=== PATIENT | male | born 1995 | race Hispanic/Latino ===

== ENCOUNTER 2023-08-06 21:09 | Emergency (ER) | payer SELFPAY ==
[2023-08-06 22:03] LABS: Absolute Lymphocytes (CBC) 2.6 K/uL (0.7-4.9); Hematocrit 40.9 % (39.6-49.0); Lymphocytes % 16.3 % (15.3-44.8); MCV 91.3 fL (80-100); Platelets 286 thou/uL (152-406); RBC Red Blood Cell Count 4.48 M/uL (4.33-5.43)
[2023-08-06] MEDS ORDERED: NA CHLORIDE 0.9% 1,000 ML ONE (22:03)
[2023-08-06] MEDS ORDERED: dexAMETHasone 10 MG/ML VIAL ONE (22:03)
[2023-08-06 22:07] LABS: Potassium 3.4 mEq/L (3.5-5.1)
--- NOTE | 2023-08-07 00:09 | ER ---
Nurse's Notes [facility] Name: Eduardo Allen Age: 28 yrs Sex: Male : 1995 Arrival Date: 08/06/2023 Time: 21:09 Bed 13 Private MD: Diagnosis: Acute tonsillitis, unspecified Presentation: 08/06 21:17 Chief complaint: Patient states: sore throat onset Saturday. Pt states that the left side cm10 of his throat hurts and not the right side. Coronavirus screen: Vaccine status: Patient reports being unvaccinated. Client denies travel out of the [place] in the last 14 days. Ebola Screen: Patient denies travel to an Ebola-affected area in the 21 days before illness onset. No symptoms or risks identified at this time. Initial Sepsis Screen: Does the patient meet any 2 criteria? No. Patient's initial sepsis screen is negative. Does the patient have a suspected source of infection? No. Patient's initial sepsis screen is negative. Risk Assessment: Do you want to hurt yourself or someone else? Patient reports no desire to harm self or others. Onset of symptoms was August 06, 2023. 21:17 Method Of Arrival: Ambulatory cm10 21:17 Acuity: LAURA 3 cm10 Historical: - Allergies: 21:18 No Known Allergies; cm10 - Home Meds: 21:18 None [Active]; cm10 - PMHx: 21:18 None; cm10 - PSHx: 21:18 None; cm10 - Immunization history:: Adult Immunizations unknown. - Social history:: Smoking status: Patient reports the use of cigarette tobacco products, denies chronic smoking, but will smoke occasionally. Screenin:56 [facility] ED Fall Risk Assessment (Adult) History of falling in the last 3 months, kl including since admission No falls in past 3 months (0 pts) Confusion or Disorientation No (0 pts) Intoxicated or Sedated No (0 pts) Impaired Gait No (0 pts) Mobility Assist Device Used No (0 pt) Altered Elimination No (0 pt) Score/Fall Risk Level 0 - 2 = Low Risk. Abuse screen: Denies threats or abuse. Nutritional screening: No deficits noted. Tuberculosis screening: No symptoms or risk factors identified. Assessment: 21:45 General: Appears in no apparent distress. uncomfortable, Behavior is calm, cooperative. kl Pain:. 21:55 Neuro: No deficits noted. Cardiovascular: No deficits noted. Respiratory: No deficits kl noted. Airway is patent Respiratory effort is even, unlabored, Respiratory pattern is regular, symmetrical, Breath sounds are clear bilaterally. EENT: Throat is reddened with gag reflex present, Reports difficulty swallowing. 23:01 Reassessment: Patient appears in no apparent distress at this time. Patient and/or [facility] family updated on plan of care and expected duration. Pain level reassessed. Patient is alert, oriented x 3, equal unlabored respirations, skin warm/dry/pink. c/o pain to throat 04/22, provider notified. 08/07 00:08 Reassessment: Patient appears in no apparent distress at this time. No changes from [facility] previously documented assessment. Patient and/or family updated on plan of care and expected duration. Pain level reassessed. Patient is alert, oriented x 3, equal unlabored respirations, skin warm/dry/pink. 00:10 General: Discharge pending completion of antibiotic therapy. [facility] 00:30 Reassessment: Patient appears in no apparent distress at this time. Patient and/or [facility] family updated on plan of care and expected duration. Pain level reassessed. Patient is alert, oriented x 3, equal unlabored respirations, skin warm/dry/pink. Patient states feeling better. Vital Signs: 08/06 21:17 BP 132 / 94; Pulse 92; Resp 16; Temp 98.6(TE); Pulse Ox 97% ; Weight 101.6 kg (R); cm10 Height 5 ft. 2 in. ; 23:07 BP 129 / 88; Pulse 73; Resp 18 S; Pulse Ox 99% on R/A; jw7 08/07 00:09 BP 130 / 85; Pulse 71; Resp 17 S; Pulse Ox 98% on R/A; jw7 08/06 21:17 Body Mass Index 39.69 (101.60 kg, 160 cm) cm10 ED Course: 08/06 21:13 Patient arrived in ED. gm2 21:14 Cherry Gomez FNP-C [facility] kb 21:14 Prasad Price MD is Attending Physician. kb 21:18 Triage completed. cm10 21:19 Arm band placed on Patient placed in waiting room. cm10 21:30 Mariposa Go, RN is Primary Nurse. jw7 21:43 Basic Metabolic Panel Sent. kl 21:43 CBC with Diff Sent. kl 21:43 Strep Sent. kl 21:44 No provider procedures requiring assistance completed. Inserted saline lock: 22 gauge kl in right ,using aseptic technique. lower forearm Blood collected. 21:57 Patient has correct armband on for positive identification. Bed in low position. Call kl light in reach. Side rails up X2. Door closed. Noise minimized. Warm blanket given. 22:45 CT Soft Tissue Neck W/contr In Process Unspecified. EDMS 08/07 00:31 Provided Education on: discharge instructions . jw7 00:31 IV discontinued, intact, bleeding controlled, No redness/swelling at site. Pressure jw7 dressing applied. Administered Medications: 08/06 21:55 Drug: NS 0.9% IV 1000 ml IV at 1000 ml once Route: IV; Rate: 1000 ml; Site: right kl forearm; 08/07 00:10 Follow up: Response: No adverse reaction; IV Status: Completed infusion; IV Intake: jw7 1000ml 08/06 21:55 Drug: Decadron - Dexamethasone IVP 10 mg IVP once Route: IVP; Site: right forearm; 08/07 00:10 Follow up: Response: No adverse reaction jw7 00:18 Drug: Rocephin - Rocephin (cefTRIAXone) IVPB 1 grams IVPB once over 30 mins; (mix in 50 jw7 mL NS) Route: IVPB; Infused Over: 30 mins; Site: right hand; 00:31 Follow up: Response: No adverse reaction; IV Status: Completed infusion; IV Intake: [id number] Medication: 00:31 VIS not applicable for this client. jw7 Intake: 00:10 IV: 1000ml; Total: 1000ml. jw7 00:31 IV: 50ml; Total: 1050ml. jw7 Outcome: 00:09 Discharge ordered by MD. lepe 00:31 Discharged to home ambulatory, with family, jw7 00:31 Condition: stable 00:31 Discharge instructions given to patient, Instructed on discharge instructions, follow up and referral plans. medication usage, Demonstrated understanding of instructions, follow-up care, medications, Prescriptions given X 1, 00:32 Patient left the ED. jw7 Signatures: Dispatcher [employer] EDTX Cherry Gomez, AIR TRAFFIC CONTROLLER-C AIR TRAFFIC CONTROLLER-Ckb Lurdes Serrano, RN RN Mariposa Hammond RN RN jw7 Elisabet Childress RN RN cm10 Gudelia Crum 2 Corrections: (The following items were deleted from the chart) 08/06 23:07 23:01 Reassessment: Patient appears in no apparent distress at this time. No changes jw7 from previously documented assessment. Patient and/or family updated on plan of care and expected duration. Pain level reassessed. Patient is alert, oriented x 3, equal unlabored respirations, skin warm/dry/pink. jw7
--- NOTE | 2023-08-07 00:09 | EDPHYS ---
Physician Documentation [facility] Name: Eduardo Allen Age: 28 yrs Sex: Male : 1995 Arrival Date: 08/06/2023 Time: 21:09 Bed 13 Private MD: ED Physician Prasad Price HPI: 08/07 00:54 This 28 yrs old Male presents to ER via Ambulatory with complaints of Sore kb Throat, Fever. 00:54 Patient is a 28-year-old male who presents for fever and sore throat that started 5 kb days ago. Denies any other symptoms.. Historical: - Allergies: 08/06 21:18 No Known Allergies; cm10 - Home Meds: 21:18 None [Active]; cm10 - PMHx: 21:18 None; cm10 - PSHx: 21:18 None; cm10 - Immunization history:: Adult Immunizations unknown. - Social history:: Smoking status: Patient reports the use of cigarette tobacco products, denies chronic smoking, but will smoke occasionally. ROS: 08/07 00:51 Abdomen/GI: Negative for abdominal pain, nausea, vomiting, diarrhea, and constipation, kb Constitutional: Positive for fever, ENT: Positive for sore throat, All other systems are negative, Exam: 00:51 Constitutional: This is a well developed, well nourished patient who is awake, alert, kb and in no acute distress. Head/Face: Normocephalic, atraumatic. Cardiovascular: Regular rate Respiratory: Respirations even and unlabored. No increased work of breathing. Talking in full sentences Skin: Warm, dry with normal turgor. Normal color. MS/ Extremity: Pulses equal, no cyanosis. Neurovascular intact. Full, normal range of motion. Neuro: Awake and alert, GCS 15, oriented to person, place, time, and situation. Moves all extremities. Normal gait. 00:51 ENT: Posterior pharynx: Tonsils: bilaterally enlarged, left more than right, swelling, that is moderate, erythema, that is moderate, Vital Signs: 08/06 21:17 BP 132 / 94; Pulse 92; Resp 16; Temp 98.6(TE); Pulse Ox 97% ; Weight 101.6 kg (R); cm10 Height 5 ft. 2 in. ; 23:07 BP 129 / 88; Pulse 73; Resp 18 S; Pulse Ox 99% on R/A; jw7 08/07 00:09 BP 130 / 85; Pulse 71; Resp 17 S; Pulse Ox 98% on R/A; jw7 08/06 21:17 Body Mass Index 39.69 (101.60 kg, 160 cm) cm10 MDM: 08/06 21:14 Patient medically screened. kb 08/07 00:09 Data reviewed: vital signs, nurses notes. kb 00:54 Differential diagnosis: peritonsillar abscess tonsillitis, strep. Counseling: I had a kb detailed discussion with the patient and/or guardian regarding the historical points, exam findings, and any diagnostic results supporting the discharge/admit diagnosis, lab results, radiology results, the need for outpatient follow up, a family practitioner, to return to the emergency department if symptoms worsen or persist or if there are any questions or concerns that arise at home. 08/06 21:18 Order name: Strep kb 08/06 21:18 Order name: CBC with Diff; Complete Time: 22:06 kb 08/06 21:18 Order name: Basic Metabolic Panel; Complete Time: 22:10 kb 08/06 22:27 Order name: Throat Culture EDMS 08/06 21:18 Order name: CT Soft Tissue Neck W/contr kb 08/06 21:18 Order name: IV Start; Complete Time: 21:43 kb Administered Medications: 08/06 21:55 Drug: NS 0.9% IV 1000 ml IV at 1000 ml once Route: IV; Rate: 1000 ml; Site: right kl forearm; 08/07 00:10 Follow up: Response: No adverse reaction; IV Status: Completed infusion; IV Intake: jw7 1000ml 08/06 21:55 Drug: Decadron - Dexamethasone IVP 10 mg IVP once Route: IVP; Site: right forearm; 08/07 00:10 Follow up: Response: No adverse reaction jw7 00:18 Drug: Rocephin - Rocephin (cefTRIAXone) IVPB 1 grams IVPB once over 30 mins; (mix in 50 jw7 mL NS) Route: IVPB; Infused Over: 30 mins; Site: right hand; 00:31 Follow up: Response: No adverse reaction; IV Status: Completed infusion; IV Intake: [id number] Disposition: 01:07 Co-signature as Attending Physician, Prasad Price MD I agree with the assessment sp4 and plan of care. I reviewed the patient's care provided by the Advanced Practice Provider and agree with the diagnosis and treatment plan. Disposition Summary: 08/07/23 00:09 Discharge Ordered Notes: Location: Home kb Condition: Stable kb Diagnosis - Acute tonsillitis, unspecified kb Followup: kb - With: Emergency Department - When: As needed - Reason: Worsening of condition Followup: kb - With: Private Physician - When: 2 - 3 days - Reason: Recheck today's complaints, Continuance of care, Re-evaluation by your physician Discharge Instructions: - Discharge Summary Sheet kb - Tonsillitis, [id number] kb Forms: - Medication Reconciliation Form kb - Thank You Letter kb - Antibiotic Education kb - Prescription Opioid Use kb - Patient Portal Instructions kb - Leadership Thank You Letter kb Prescriptions: - Augmentin 875-125 mg Oral Tablet - take 1 tablet ORAL route every 12 hours for 10 days; 20 tablet; Refills: 0, kb Product Selection Permitted Signatures: Dispatcher [employer] EDCherry Chirinos, BOX TOE STITCHER-C BOX TOE STITCHER-Lurdes Rodríguez, RN RN Mariposa Hammond, RN RN jw7 Prasad Price MD MD sp4 Elisabet Childress, RN RN cm10
[2023-08-07] MEDS ORDERED: CEFTRIAXONE 1000 MG/VIAL ONE (00:25)
[2023-08-07] MEDS ORDERED: NA CHLORIDE 0.9% 50 ML ONE (00:26)
--- NOTE | 2023-08-07 12:17 | RAD REPORT ---
EXAM DESCRIPTION: CT - Soft Tissue Neck W/Contr - 08/07/2023 4:54 am CLINICAL HISTORY: 28 years, Male, r/o bellman captain sore throat, neck pain. COMPARISON: None. TECHNIQUE: Multiple transaxial tomograms of the neck were obtained from the base of the skull to the pulmonary apex utilizing 3 mm slice thickness at 3 mm interval reconstruction after the administrati on of IV contrast. In addition coronal and sagittal spinal reformats were generated and reviewed. This exam was performed according to our departmental dose-optimization protocol, which includes auto mated exposure control, adjustment of the mA and/or kV according to patient size and/or use of iterat jesus reconstruction technique. FINDINGS: There is a prominent right tonsil with the area of ill-defined hypodensity measuring appro ximately 2.8 x 3.1 x 3.7 cm on axial image 26/83 and coronal image 47/121 corresponding to a markedly enlarged tonsil. Hypodensity suggests the possibility of phlegmon. No definitive discernible abscess could be seen. Skull base demonstrate to be normal. Nasopharynx, oropharynx, hypopharynx is normal. No evidence fo r abnormal mucosal enhancement/or evidence for significant abnormal masses within the base of the ton nohemi, vallecula, epiglottis and/or piriform sinus. The vocal cords demonstrate to be normal. Parapha ryngeal space demonstrate to be normal. Parotid and submandibular glands are normal. No evidence for calculi. Tiny nondiagnostic lymph nodes are seen within the posterior neck. Paravertebral element s are grossly unremarkable. There are prominent bilateral mandibular angle lymph nodes slightly gre ater left than right measuring 1.2 cm on axial image 36/83. The thyroid gland demonstrate to be within normal limits. There is no significant abnormalities withi n the lung apices. IMPRESSION: Enlarged right tonsil with the area of ill-defined hypodensity measuring approximately 2 .8 x 3.1 x 3.7 cm corresponding to a markedly enlarged tonsil. Hypodensity suggests the possibility o f phlegmon. No definitive discernible peritonsillar abscess could be seen. Prominent bilateral mandibular angle lymph nodes slightly greater left than right, most likely reacti ve in nature. Electronically signed by: Andrea De La Paz MD 08/06/2023 10:58 PM CDT Due to temporary technical issues with the PACS/Fluency reporting system, reports are being signed by the in house radiologist without review as a courtesy to ensure prompt reporting. The interpreting r adiologist is fully responsible for the content of the report.
[2023-08-08 15:29] VITALS: BP 130/85; TEMP 98.6; O2SAT 98
== END 2023-08-07 00:32 | disposition home or self-care (01) ==
LOC: ER 21:09 → EDBD 21:09 → ER 08-07 00:32
DX: J03.90 Acute tonsillitis, unspecified (principal); Z20.822 Contact with and (suspected) exposure to COVID-19
CPT/HCPCS: 36415; 70491; 80048; 85025; 87070; 87081; J0696; J1100; J7030; Q9967

== ENCOUNTER 2023-08-08 08:56 | Emergency (ER) | payer SELFPAY ==
--- NOTE | 2023-08-08 09:51 | ER ---
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 Pt reports no improvement at this time. Coronavirus screen: At this time, the client does not indicate any symptoms associated with coronavirus-19. Ebola Screen: No symptoms or risks identified at this time. Initial Sepsis Screen: Does the patient meet any 2 criteria? No. Patient's initial sepsis screen is negative. Does the patient have a suspected source of infection? No. Patient's initial sepsis screen is negative. Risk Assessment: Do you want to hurt yourself or someone else? Patient reports no desire to harm self or others. Onset of symptoms was August 03, 2023. 09:21 Method Of Arrival: Ambulatory [facility] 09:21 Acuity: LAURA 4 jl7 Triage Assessment: : General: Appears in no apparent distress. uncomfortable, Behavior is calm, cooperative, jl7 appropriate for age. Pain: Complains of pain in sore throat Pain currently is 8 out of 10 on a pain scale. EENT: Reports pain in sore throat. Historical: - Allergies: 09: No Known Allergies; jl7 - Home Meds: : None [Active]; jl7 - PMHx: : None; jl7 - Immunization history:: Adult Immunizations unknown. - Social history:: Smoking status: Patient reports the use of cigarette tobacco products, smokes .25 packs per day. Screenin:08 [facility] ED Fall Risk Assessment (Adult) Score/Fall Risk Level 0 - 2 = Low Risk ll1 Oriented to surroundings, Maintained a safe environment, Educated pt \T\ family on fall prevention, incl call for assistance when getting out of bed, Hourly rounding (assess needs \T\ fall precautionary measures) done. Abuse screen: Denies threats or abuse. Nutritional screening: No deficits noted. Tuberculosis screening: No symptoms or risk factors identified. Assessment: :27 Reassessment: TIM Fox in triage assessing pt. jl7 10:07 Reassessment: No changes from previously documented assessment. Discharge instructions ll1 Sy[place] int. [id number]. 10:09 Respiratory: Airway is patent Respiratory effort is even, unlabored, Breath sounds are ll1 clear bilaterally. EENT: Throat is reddened. Vital Signs: 09:21 BP 133 / 85; Pulse 86; Resp 15; Temp 98.8; Pulse Ox 100% ; Weight 101.6 kg; Height 5 jl7 ft. 6 in. ; Pain 8/10; 09:21 Body Mass Index 36.15 (101.60 kg, 167.64 cm) jl7 09:21 Pain Scale: Adult 7 ED Course: 08:59 Patient arrived in ED. mr 09:19 Arm band placed on. ll1 09:25 Dominique Rosen FNP-C is PHCP. snw 09:25 Shruti Rivero MD is Attending Physician. snw 09:26 Triage completed. jl7 09:48 Em Serrano, REAL is Primary Nurse. ll1 09:49 Odalys Melendrez MD is Referral Physician. snw 10:09 Patient has correct armband on for positive identification. Bed in low position. Call ll1 light in reach. Provided Education on: n/a. 10:09 No provider procedures requiring assistance completed. Patient did not have IV access ll1 during this emergency room visit. Administered Medications: 09:48 Drug: Famotidine PO 20 mg PO once Route: PO; ll1 10:12 Follow up: Response: No adverse reaction ll1 09:48 Drug: AZITHromycin PO 500 mg PO once Route: PO; ll1 10:12 Follow up: Response: No adverse reaction ll1 09:48 Drug: Dexamethasone IM 10 mg IM once Route: IM; Site: right vastus lateralis; ll1 10:12 Follow up: Response: No adverse reaction ll1 Medication: 10:12 VIS not applicable for this client. ll1 Outcome: 09:51 Discharge ordered by . snw 10:09 Discharged to home ambulatory, ll1 10:09 Condition: stable 10:09 Discharge instructions given to patient, Instructed on discharge instructions, follow up and referral plans. medication usage, Demonstrated understanding of instructions, follow-up care, medications, Prescriptions given X 4, 10:12 Patient left the ED. ll1 Signatures: Dominique oRsen, LINING VAMPER-C LINING VAMPER-Csnw Karolyn Murillo, Reg Reg mr Berny Jaime, RN RN jl7 Em Serrano, REAL RN ll1
--- NOTE | 2023-08-08 09:51 | EDPHYS ---
Physician Documentation [facility] Name: Eduardo Allen Age: 28 yrs Sex: Male : 1995 Arrival Date: 08/08/2023 Time: 08:56 Bed 12 Private MD: ED Physician Shruti Rivero HPI: 08/08 10:04 This 28 yrs old Male presents to ER via Ambulatory with complaints of Sore snw Throat. 10:04 The patient presents with sore throat. The patient describes throat pain as constant, snw scratchy. Onset: The symptoms/episode began/occurred suddenly, 3 day(s) ago, and became worse this morning, and became persistent. Severity of symptoms: At their worst the symptoms were moderate, severe. Associated signs and symptoms: Pertinent positives: flu-like symptoms. The patient has been recently seen by a physician: The patient has been recently seen at the [facility] Emergency Department, yesterday, for similar complaints was given a prescription for antibiotics. Historical: - Allergies: : No Known Allergies; jl7 - Home Meds: : None [Active]; jl7 - PMHx: : None; jl7 - Immunization history:: Adult Immunizations unknown. - Social history:: Smoking status: Patient reports the use of cigarette tobacco products, smokes .25 packs per day. ROS: 10:03 Constitutional: Negative for fever, chills, and weight loss, Eyes: Negative for injury, snw pain, redness, and discharge, Neck: Negative for injury, pain, and swelling, Cardiovascular: Negative for chest pain, palpitations, and edema, Respiratory: Negative for shortness of breath, cough, wheezing, and pleuritic chest pain, Abdomen/GI: Negative for abdominal pain, nausea, vomiting, diarrhea, and constipation, Back: Negative for injury and pain, : Negative for injury, bleeding, discharge, and swelling, MS/Extremity: Negative for injury and deformity, Skin: Negative for injury, rash, and discoloration, Neuro: Negative for headache, weakness, numbness, tingling, and seizure, Psych: Negative for depression, anxiety, suicide ideation, homicidal ideation, and hallucinations, 10:03 ENT: Positive for difficulty swallowing, sore throat, Exam: 09:47 Constitutional: This is a well developed, well nourished patient who is awake, alert, snw and in no acute distress. Head/Face: Normocephalic, atraumatic. Eyes: Pupils equal round and reactive to light, extra-ocular motions intact. Lids and lashes normal. Conjunctiva and sclera are non-icteric and not injected. Cornea within normal limits. Periorbital areas with no swelling, redness, or edema. Chest/axilla: Normal chest wall appearance and motion. Nontender with no deformity. No lesions are appreciated. Cardiovascular: Regular rate and rhythm with a normal S1 and S2. No gallops, murmurs, or rubs. Normal PMI, no JVD. No pulse deficits. Respiratory: Lungs have equal breath sounds bilaterally, clear to auscultation and percussion. No rales, rhonchi or wheezes noted. No increased work of breathing, no retractions or nasal flaring. Abdomen/GI: Soft, non-tender, with normal bowel sounds. No distension or tympany. No guarding or rebound. No evidence of tenderness throughout. Back: No spinal tenderness. No costovertebral tenderness. Full range of motion. Skin: Warm, dry with normal turgor. Normal color with no rashes, no lesions, and no evidence of cellulitis. MS/ Extremity: Pulses equal, no cyanosis. Neurovascular intact. Full, normal range of motion. Neuro: Awake and alert, GCS 15, oriented to person, place, time, and situation. Cranial nerves II-XII grossly intact. Motor strength 5/5 in all extremities. Sensory grossly intact. Cerebellar exam normal. Normal gait. Psych: Awake, alert, with orientation to person, place and time. Behavior, mood, and affect are within normal limits. 09:47 ENT: External ear(s): are unremarkable, Ear canal(s): are normal, TM's: are normal, Nose: is normal, Mouth: is normal, Posterior pharynx: erythema, that is marked, peritonsillar mass, beginning left tonsillar abscess, no trismus, abx started 15 hours ago, Dental exam: normal, Voice: is normal, 10:03 Neck: Lymph nodes: lymphadenopathy is appreciated, anterior cervical nodes, snw Vital Signs: 09:21 BP 133 / 85; Pulse 86; Resp 15; Temp 98.8; Pulse Ox 100% ; Weight 101.6 kg; Height 5 jl7 ft. 6 in. ; Pain 05/23; 09:21 Body Mass Index 36.15 (101.60 kg, 167.64 cm) 7 09:21 Pain Scale: Adult jl7 MDM: 09:29 Patient medically screened. snw 09:46 Differential diagnosis: gastroesophageal reflux disease, gingivostomatitis, group A snw strep tonsillitis, mononucleosis, peritonsillar abscess. Data reviewed: vital signs, nurses notes. I considered the following discharge prescriptions or medication management in the emergency department Medications were administered in the Emergency Department. See MAR. Counseling: I had a detailed discussion with the patient and/or guardian regarding the historical points, exam findings, and any diagnostic results supporting the discharge/admit diagnosis, the need for outpatient follow up, for definitive care, an ENT specialist, to return to the emergency department if symptoms worsen or persist or if there are any questions or concerns that arise at home. Special discussion: Based on the history and exam findings, there is no indication for further emergent testing or inpatient evaluation. I discussed with the patient/guardian the need to see the ENT specialist for further evaluation of the symptoms. I discussed with the patient/guardian the need to see the primary care provider for further evaluation of the symptoms. ED course: Pt seen in ED yesterday, started Augmentin last pm. Administered Medications: 09:48 Drug: Famotidine PO 20 mg PO once Route: PO; ll1 10:12 Follow up: Response: No adverse reaction ll1 09:48 Drug: AZITHromycin PO 500 mg PO once Route: PO; ll1 10:12 Follow up: Response: No adverse reaction ll1 09:48 Drug: Dexamethasone IM 10 mg IM once Route: IM; Site: right vastus lateralis; ll1 10:12 Follow up: Response: No adverse reaction ll1 Disposition Summary: 08/08/23 09:51 Discharge Ordered Notes: Location: Home snw Condition: Stable snw Diagnosis - Streptococcal pharyngitis snw Followup: snw - With: Emergency Department - When: As needed - Reason: Worsening of condition Followup: snw - With: Odalys Melendrez MD - When: 2 - 3 days - Reason: Recheck today's complaints, Continuance of care, Re-evaluation by your physician Discharge Instructions: - Discharge Summary Sheet snw - Sore Throat snw - Strep Throat, Adult snw - Rehydration, Adult snw Forms: - Work release form snw - Medication Reconciliation Form snw - Thank You Letter snw - Antibiotic Education snw - Prescription Opioid Use snw - Patient Portal Instructions snw - Leadership Thank You Letter snw Prescriptions: - Zyrtec 10 mg Oral Tablet - take 1 tablet ORAL route once daily As needed; 20 tablet; Refills: 0, Product snw Selection Permitted - Prednisone 20 mg Oral Tablet - take 2 tablets ORAL route once daily for 5 days; 10 tablet; Refills: 0, Product snw Selection Permitted - Pepcid 20 mg Oral Tablet - take 1 tablet ORAL route once daily; 20 tablet; Refills: 0, Product Selection snw Permitted - Zithromax 500 mg Oral tablet - take 1 tablet ORAL route once daily for 3 days Start 08/09/23; 3 tablet; snw Refills: 0, Product Selection Permitted Signatures: Dominique Rosen, ROB [employer] Berny Jaime RN RN jl7 Em Serrano RN RN ll1 Corrections: (The following items were deleted from the chart) 10:03 09:47 ENT: External ear(s): are unremarkable, Ear canal(s): are normal, TM's: are snw normal, Nose: is normal, Mouth: is normal, Posterior pharynx: erythema, that is marked, peritonsillar mass, beginning left tonsillar abscess, no trismus, abx started 15 hours ago, Dental exam: normal, Voice: is normal, snw
[2023-08-08] MEDS ORDERED: AZITHROMYCIN 250 MG TAB ONE (09:54)
[2023-08-08] MEDS ORDERED: dexAMETHasone 10 MG/ML VIAL ONE (09:54)
[2023-08-08] MEDS ORDERED: FAMOTIDINE 20 MG TAB ONE (09:54)
[2023-08-08 16:29] VITALS: BP 133/85; TEMP 98.8; O2SAT 100
== END 2023-08-08 10:12 | disposition home or self-care (01) ==
LOC: ER 08:56
DX: J02.0 Streptococcal pharyngitis (principal); F17.210 Nicotine dependence, cigarettes, uncomplicated
CPT/HCPCS: J1100